=== PATIENT | male | born 1985 | race Caucasian/White ===

== ENCOUNTER 2017-04-27 09:30 | Inpatient (IN) | payer OTHER ==
[~2017-04-27] VITALS: Ht 172.7 cm; Wt 97.5 kg
[~2017-04-27 09:30] MED LIST: BUPROPION XL300 M1 PO; HYDROXYZINE HCL50 M1 PO; POLYTRIM EYE DR10 ML OPH; PREDNISONE10 M2 PO; TRAZODONE HCL100 M1 PO; VENLAFAXINE HCL75 M1 PO
--- NOTE | 2017-04-27 10:20 | ED PSYCHIATRIC COMPLAINT ---
History of Present Illness General Chief Complaint: Psychiatric Related Complaint Stated Complaint: +SI Source: patient Exam Limitations: no limitations Vital Signs & Intake/Output Vital Signs & Intake/Output Vital Signs Date Time Temp Pulse Resp B/P B/P Pulse O2 O2 Flow FiO2 Mean Ox Delivery Rate 04/27 1311 97.6 88 18 153/83 98 Room Air 04/27 1047 97.2 81 18 168/97 97 Room Air 04/27 0933 98.2 99 18 161/94 99 Room Air Allergies Coded Allergies: poison kevin extract (SWELLING, REDNESS, HIVES ALL OVER 10/17/15) poison oak extract (SWELLING, REDNESS, HIVES ALL OVER 10/17/15) poison sumac extract (SWELLING, REDNESS, HIVES ALL OVER 10/17/15) Reconcile Medications No Known Home Medications Triage Note: PT TO ED FOR +SI, REPORTING HE RECENTLY RELAPSED ON HEROIN AND HIS MOM HAS BEEN ILL "I JUST CAN'T DEAL WITH LIFE RIGHT NOW" TEARFUL IN TRIAGE. Triage Nurses Notes Reviewed? yes Onset: Abrupt Duration: day(s):, constant, continues in ED Timing: recent history HPI: 31-year-old male comes into the emergency room for further evaluation of suicidal ideation. Patient reports that he has been feeling increasingly depressed for the past 6 months. He has a prior history of suicidal and major depression. He's been off of his medication for depression for about a year. He admits to heroin use. Denies any alcohol use. He reports that his plan was to make some chemicals at home and inhale them. Denies owning any guns. He lives with his mother. Currently no relationships. (Hugo Diana) Past History Travel History Traveled to [place] past 21 day No Medical History Any Pertinent Medical History? see below for history Neurological: NONE EENT: NONE Cardiovascular: NONE Respiratory: NONE Gastrointestinal: NONE Hepatic: NONE Renal: NONE Musculoskeletal: NONE Psychiatric: opioid dependence, MAJOR DEPRESSION D/O Endocrine: NONE Blood Disorders: NONE Cancer(s): NONE Isolation History: Standard Surgical History Surgical History: non-contributory Psychosocial History What is your primary language Faroese Tobacco Use: Never used ETOH Use: denies use Illicit Drug Use: cocaine, heroin Family History Hx Contributory? No (Hugo Diana) Review of Systems Review of Systems Constitutional: Reports: no symptoms. EENTM: Reports: no symptoms. Respiratory: Reports: no symptoms. Cardiovascular: Reports: no symptoms. GI: Reports: no symptoms. Genitourinary: Reports: no symptoms. Musculoskeletal: Reports: no symptoms. Skin: Reports: no symptoms. Neurological/Psychological: Reports: see HPI. Hematologic/Endocrine: Reports: no symptoms. Immunologic/Allergic: Reports: no symptoms. All Other Systems: Reviewed and Negative (Hugo Diana) Physical Exam Physical Exam General Appearance: well developed/nourished, mild distress Head: atraumatic Eyes: Bilateral: normal appearance, EOMI. Ears, Nose, Throat: normal ENT inspection, hearing grossly normal Neck: normal inspection Respiratory: no respiratory distress Cardiovascular: regular rate/rhythm Extremities: normal range of motion Neurological/Psychiatric: awake, alert, flat Appearance/Memory/Insight: appropriate appearance Behavoir/Eye Contact/Speech: cooperative, decreased rate of speech Thoughts/Hallucinations: no apparent hallucination Skin: intact, normal color, warm/dry SAD PERSONS SAD PERSONS Response Value Male Sex? yes 1 Depression/Hopelessness? yes 2 Previous Attempts/Psych Care yes 1 Excessive Ethanol/Drug Use? yes 1 Rational Thinking Loss? yes 2 Single//? yes 1 Stated Future Intent? yes 2 Total 10 SAD PERSONS Done? yes (Hugo Diana) Progress Differential Diagnosis: dementia, drug intoxication, drug overdose, drug withdrawal, depression, anxiety, bipolar, schizoaffective, Plan of Care: Orders Procedure Date/time Status Regular Diet 04/27 L Complete Regular Diet 04/27 D Active Admit to inpatient psych 04/27 1304 Active Patient Data - inpatient psych 04/27 1227 Active Admit to inpatient psych 04/27 1227 Active EKG 04/27 1227 Active ED CRISIS PSYCH CONSULT 04/27 1137 Active Continuous Observation Monitor 04/27 0951 Active URINE DRUGS OF ABUSE 04/27 0951 Complete ETHANOL 04/27 0951 Complete COMPREHENSIVE METABOLIC PANEL 04/27 0951 Complete CBC WITHOUT DIFFERENTIAL 04/27 0951 Complete Vital Signs 04/27 UNK Active Nursing Misc 04/27 UNK Active Alternative Nursing Therapy 04/27 UNK Active Activity/Ambulation 04/27 UNK Active Current Medications Sig/Awais Start time Last Medication Dose Stop Time Status Admin Al Hydroxide/Mg 30 ML Q4-6 PRN PRN 04/27 1230 UNVr Hydroxide (Maalox Plus) Benztropine Mesylate 1 MG Q6P PRN 04/27 1230 UNVr (Cogentin 1 MG Tablet) Benztropine Mesylate 1 MG Q6P PRN 04/27 1230 UNVr (Cogentin) Buprenorphine/ 2 TAB Q4 HRS NEEDED PRN 04/27 1230 UNVr Naloxone (Suboxone) Haloperidol 5 MG Q6P PRN 04/27 1230 UNVr (Haldol) Haloperidol 5 MG Q6P PRN 04/27 1230 UNVr (Haldol) Hydroxyzine HCl 50 MG Q6-PRN PRN 04/27 1230 UNVr (Atarax) Ibuprofen 400 MG Q6P PRN 04/27 1230 UNVr (Motrin) Loperamide HCl 2 MG Q6P PRN 04/27 1230 UNVr (Imodium) Lorazepam 2 MG Q6P PRN 04/27 1230 UNVr (Ativan) Lorazepam 2 MG Q6P PRN 04/27 1230 UNVr (Ativan) Trazodone HCl 50 MG AT BEDTIME NEED.. 04/27 1230 UNVr (Desyrel) Laboratory Tests 04/27/17 1119: Urine Opiates Screen 3164.00 H, Methadone Screen 46, Barbiturate Screen < 60, Ur Phencyclidine Scrn 11.60, Amphetamines Screen < 100, U Benzodiazepines Scrn < 85, Urine Cocaine Screen > 1000 H, Urine Cannabis Screen < 5.00 04/27/17 1023: Anion Gap 13, Estimated GFR > 60, BUN/Creatinine Ratio 18.3, Glucose 110 H, Calcium 9.9, Total Bilirubin 0.5, AST 26, ALT 40, Alkaline Phosphatase 75, Total Protein 7.3, Albumin 4.5, Globulin 2.8, Albumin/Globulin Ratio 1.6, CBC w Diff NO MAN DIFF REQ, RBC 4.81, MCV 89.1, MCH 30.1, MCHC 33.7, RDW 13.9, MPV 7.6, Gran % 65.8, Lymphocytes % 29.7, Monocytes % 3.2, Eosinophils % 0.8, Basophils % 0.5, Absolute Granulocytes 3.3, Absolute Lymphocytes 1.5, Absolute Monocytes 0.2 , Absolute Eosinophils 0, Absolute Basophils 0, Serum Alcohol < 10.0 Initial ED EKG: normal sinus rhythm, rate (89), nonspecific ST T wave chg (Hugo Diana) Departure Departure Disposition: STILL A PATIENT Condition: Stable Clinical Impression Primary Impression: Major depression Referrals: Dwight VERNON,Brody Jean (PCP/Family) Departure Forms: Customer Survey General Discharge Information Prescriptions: Current Visit Scripts No Known Home Medications (Hugo Diana) Psych Admission Note Psychiatric Admission: I have seen and evaluated MATTY WHITE. I have also reviewed all the pertinent lab results and diagnostic results. MATTY WHITE will be admitted to our inpatient Psychiatric unit for treatment and care. PA/UTILITIES SERVICE INVESTIGATOR Co-Sign Statement Statement: ED Attending supervision documentation- [X] I saw and evaluated the patient. I have also reviewed all the pertinent lab results and diagnostic results. I agree with the findings and the plan of care as documented in the PA's/UTILITIES SERVICE INVESTIGATOR's documentation. [X] I have reviewed the ED Record and agree with the PA's/UTILITIES SERVICE INVESTIGATOR's documentation. [] Additions or exceptions (if any) to the PAs/UTILITIES SERVICE INVESTIGATOR's note and plan are summarized below: [PT REQUIRES ADMISSION TO [facility] FOR INPATIENT PSYCHIATRIC TREATMENT] (Damian VERNON,Vinicius Bond) (Damian VERNON,Vinicius Bond)
[2017-04-27 10:44] LABS: ABSOLUTE BASOPHIL COUNT 0 /CUMM (0.0-0.2); ABSOLUTE EOSINOPHIL COUNT 0 /CUMM (0.0-0.7); ABSOLUTE GRANULOCYTE CT 3.3 /CUMM (1.4-6.5); ABSOLUTE LYMPH COUNT 1.5 /CUMM (1.2-3.4); ABSOLUTE MONOCYTE COUNT 0.2 /CUMM (0.10-0.60); BASOPHIL % 0.5 % (0.0-2.0); EOSINOPHIL % 0.8 % (0-5); GRANULOCYTE % 65.8 % (42.2-75.2); HEMATOCRIT 42.8 % (42-52); MEAN CORPUSCULAR HGB 30.1 PG (27.0-31.0); MEAN CORPUSCULAR HGB CONC 33.7 G/DL (33.0-37.0); MEAN CORPUSCULAR VOLUME 89.1 FL (80.0-94.0); MEAN PLATELET VOLUME 7.6 FL (7.4-10.4); PLATELET COUNT 220 /CUMM (130-400); RBC DISTRIBUTION WIDTH 13.9 % (11.5-14.5); RED BLOOD CELL CT 4.81 /CUMM (4.70-6.10); WHITE BLOOD CELL COUNT 4.9 /CUMM (4.8-10.8)
--- NOTE | 2017-04-27 12:47 | ED PSYCH CRISIS CONSULTATION ---
Crisis Consult Basic Assessment Date of Consult: 04/27/17 Responsible Person/Accompanied By: Patient ALEXA mother Insurance Authorization: Insurance #1: Insurance name: JEN LOO Phone number: Policy number: [id number] Group number: Authorization number: ED Provider: Patient's ED Provider: Hugo Diana Primary Care Physician: Patient's PCP: Brody Quintanilla MD PCP's Current Psychiatrist: None Chief Complaint: Psychiatric Related Complaint Patient's Quote: "I have been feeling more and more overwhelmed" Present Illness: Patient is a 31 year old male brought in by his mother this morning due to increased suicidal thoughts. Upon arrival, patient was laying on his bed in hospital scrubs. He appeared tearful and sad, he also had a flat affect but was pleasant. Pt reported that he has become more and more overwhelmed. 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 She recently underwent brain surgery and is able to walk and do more daily living activities on her own. Pt reports depressive symptoms and thoughts to harm himself. Pt also reports that he has been using Heroin. He reports using 5-10 bags of Heroin a day. Pt also reports that a stressor is that his drug use has led to financial difficulties for him and his mother. He reports that in October/November 2016 he put a bag over his head and tied rubber bands around it in an attempt to kill himself. Since then, he has been researching other ways to kill himself, but he reports he does not want to go through with it. Pt reports he was inpatient at [facility] about a year and a half ago due to suicidal ideation. He was in treatment and on medication ( Effexor, Trazodone & Wellbutrin) for about 5 years, but stopped treatment and medication about 1.5 years ago due to the practice he was going to no longer taking his insurance. Pt. reports that medication was helpful for him in the past. Pt is seeking voluntary admission at this time. Crisis left voicemail for pt's mother asking for call back for collateral and to inform her of admission to [facility]PS. [place]-Suicide Severity Rating Scale was completed during assessment. Pt acknowledges suicidal thoughts but does not wish to be . He reported feeling hopeless, helpless, trapped and in a major depressive episode. Did report feeling like a burden to family members due to hx of substance abuse. Pt was able to identify reasons for living and did report responsibility to family members. Patient's Address: [place] [address] Other Who Do You Live With? Mother Family/Informants Interviewed: left mother voicemial. Allergies - Coded Allergies: poison kevin extract (SWELLING, REDNESS, HIVES ALL OVER 10/17/15) poison oak extract (SWELLING, REDNESS, HIVES ALL OVER 10/17/15) poison sumac extract (SWELLING, REDNESS, HIVES ALL OVER 10/17/15) Current Medications - No Known Home Medications Laboratory Results: Laboratory Tests 04/27/17 1119: Urine Opiates Screen 3164.00 H, Methadone Screen 46, Barbiturate Screen < 60, Ur Phencyclidine Scrn 11.60, Amphetamines Screen < 100, U Benzodiazepines Scrn < 85, Urine Cocaine Screen > 1000 H, Urine Cannabis Screen < 5.00 04/27/17 1023: Anion Gap 13, Estimated GFR > 60, BUN/Creatinine Ratio 18.3, Glucose 110 H, Calcium 9.9, Total Bilirubin 0.5, AST 26, ALT 40, Alkaline Phosphatase 75, Total Protein 7.3, Albumin 4.5, Globulin 2.8, Albumin/Globulin Ratio 1.6, CBC w Diff NO MAN DIFF REQ, RBC 4.81, MCV 89.1, MCH 30.1, MCHC 33.7, RDW 13.9, MPV 7.6, Gran % 65.8, Lymphocytes % 29.7, Monocytes % 3.2, Eosinophils % 0.8, Basophils % 0.5, Absolute Granulocytes 3.3, Absolute Lymphocytes 1.5, Absolute Monocytes 0.2 , Absolute Eosinophils 0, Absolute Basophils 0, Serum Alcohol < 10.0 Past History Past Medical History Neurological: NONE EENT: NONE Cardiovascular: NONE Respiratory: NONE Gastrointestinal: NONE Hepatic: NONE Renal: NONE Musculoskeletal: NONE Psychiatric: opioid dependence, MAJOR DEPRESSION D/O Endocrine: NONE Blood Disorders: NONE Cancer(s): NONE Past Surgical History Surgical History: non-contributory Psychosocial History Strengths/Capabilities: pt is seeking out help, open to suggestions, honest and likable. Physical Limitations (Interventions): pt reports financial difficulties Psychiatric Treatment History Psych Treatment Psychiatric Treatment Yes Inpatient Treatment Yes Outpatient Treatment Yes Location of Treatment inpatient - [facility], unknown outpatient agency in [place], [place] Reason for Treatment depression Dates of Treatment [facility] - inpatient July 2015. outpatient in [place] 2016 Response to Treatment pt reports doing well on medication Diagnosis by History: Major Depressive Disorder Substance Use/Abuse History Drug Use/Abuse 1 Substances Used/Abused Yes Substance Used/Abused Heroin First Use relapsed 6 months ago Last Used yesterday How much used/taken 5-10 bags How often daily For how long 6 months Drug Use/Abuse 2 Substances Used/Abused Yes Substance Used/Abused Cocaine First Use unclear Last Used yesterday How much used/taken unknown How often only when he doesn't have access to heroin For how long unclear Substance Abuse Treatment Substance Abuse Treatment Past Substance Abuse [place] No Current Mental Status Mental Status Orientation: Person, Place, Situation Affect: Flat, Hopeless, Sad Speech: WNL Neuro-vegetative: WNL Appearance Appearance- Dress/Hygiene: pt is dressed in hosptial scrubs. Hygeine was appropriate. Behaviors Thought Process: WNL Thought Content: WNL Memory: WNL Insight: Fair SI/HI Risk Assessment Past Suicidal Ideation/Attempts Yes Current Suicidal Ideation/Att Yes Past Homicidal Ideation/Att: No Current Homicidal Ideation/Attempts No Degree of Intent: Thoughts/No Intent Danger To: Self Risk Factors: history of suicide atmpts, SA/MH hospitalized, substance abuse, isolate/no social support, male Lethality Ratin PTSD Checklist PTSD Done? patient declined ED Management Sitter: Yes Restraints: No DSM5/PS Stressors/Medical Prob Diagnosis' (DSM 5, Stressors, Medical): F33.1- Major Depressive Disorder Moderate Recurrent Episone F11.20 - Opioid Use Disorder, Severe Current GAF: 23 Departure Disposition Psych Medical Clearance Date: 04/27/17 Medically Cleared at: 1215 Time Started: 1215 Time Ended: 1245 Psychiatrist Consulted: Dr. Sage Date Disposition Established: 04/27/17 Time Disposition Established: 1245 Plan for Disposition - Modality: Inpatient Psychiatry Facility: [facility] Rationale for Disposition: Pt reports SI. He was brought to the ED by his mother. He reports feeling more and more overwhelmed over the past 6 months. He also reports using heroin daily. Type of IP Admission: Voluntary Referrals Dwight VERNON,Brody Jean (PCP/Family)
--- NOTE | 2017-04-27 14:06 | IP CRISIS DIAG ASSESS PSYCH ---
See Addendum Diagnostic Assessment Basic Assessment Insurance Authorization: Insurance #1: Insurance name: JEN LOO Phone number: Policy number: [id number] Group number: Authorization number: Primary Care Physician: Patient's PCP: Brody Quintanilla MD PCP's Patient's Quote: "I have been feeling more and more overwhelmed" Present Illness: Patient is a 31 year old male brought in by his mother this morning due to increased suicidal thoughts. Upon arrival, patient was laying on his bed in hospital scrubs. He appeared tearful and sad, he also had a flat affect but was pleasant. Pt reported that he has become more and more overwhelmed. 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 She recently underwent brain surgery and is able to walk and do more daily living activities on her own. Pt reports depressive symptoms and thoughts to harm himself. Pt also reports that he has been using Heroin. He reports using 5-10 bags of Heroin a day. Pt also reports that a stressor is that his drug use has led to financial difficulties for him and his mother. He reports that in October/November 2016 he put a bag over his head and tied rubber bands around it in an attempt to kill himself. Since then, he has been researching other ways to kill himself, but he reports he does not want to go through with it. Pt reports he was inpatient at [facility] about a year and a half ago due to suicidal ideation. He was in treatment and on medication ( Effexor, Trazodone & Wellbutrin) for about 5 years, but stopped treatment and medication about 1.5 years ago due to the practice he was going to no longer taking his insurance. Pt. reports that medication was helpful for him in the past. Pt is seeking voluntary admission at this time. Crisis left voicemail for pt's mother asking for call back for collateral and to inform her of admission to CPS. [place]-Suicide Severity Rating Scale was completed during assessment. Pt acknowledges suicidal thoughts but does not wish to be . He reported feeling hopeless, helpless, trapped and in a major depressive episode. Did report feeling like a burden to family members due to hx of substance abuse. Pt was able to identify reasons for living and did report responsibility to family members. Patient's Address: [address] [place] [address] Other Who Do You Live With? Mother Feel Safe Where You Live? Yes Feel Safe in Your Relationship Yes Marital Status: single Do You Have Children? No Primary Language? Singaporean Language(s) Spoken At Home: Singaporean Family/Informants Interviewed: left mother voicemial. Allergies - Coded Allergies: poison kevin extract (SWELLING, REDNESS, HIVES ALL OVER 10/17/15) poison oak extract (SWELLING, REDNESS, HIVES ALL OVER 10/17/15) poison sumac extract (SWELLING, REDNESS, HIVES ALL OVER 10/17/15) Current Medications - No Known Home Medications Past History Past Surgical History Surgical History non-contributory Abuse/Trauma History Trauma History/Current Trauma: Denies Legal History Current Legal Status: none Have you ever been arrested? Yes Number of Arrests: [address] Dates: n.a Psychosocial History Strengths/Capabilities: pt is seeking out help, open to suggestions, honest and likable. Physical Limitations (Interventions): pt reports financial difficulties Psychiatric Treatment History Psych Treatment Psychiatric Treatment Yes Inpatient Treatment Yes Outpatient Treatment Yes Location of Treatment inpatient - [facility], [facility] outpatient agency in [place], [place] Reason for Treatment depression Dates of Treatment [facility] - inpatient July 2015. outpatient in [place] 2016 Response to Treatment pt reports doing well on medication Diagnosis by History: Major Depressive Disorder Risk Factors: history of suicide atmpts, SA/MH hospitalized, substance abuse, isolate/no social support, male Substance Use/Abuse History Drug Use/Abuse minimum 12mo Hx Substances Used/Abused Yes Substance Used/Abused Cocaine First Use unclear Last Used yesterday How much used/taken unknown How often only when he doesn't have access to heroin For how long unclear Substance Abuse Treatment Substance Abuse Treatment Past Substance Abuse [place] No Sexual History Sexually Active No Sexual Concerns: no concerns reported Education History Highest Level of Education: some college Preferred Learning Style: visual, auditory, experiential Current Mental Status Mental Status Orientation: Person, Place, Situation Affect: Flat, Hopeless, Sad Speech: WNL Neuro-vegetative: WNL Appearance Appearance- Dress/Hygiene: pt is dressed in hosptial scrubs. Hygeine was appropriate. Behaviors Thought Process: WNL Thought Content: WNL Memory: WNL Insight: Fair SI/HI Risk Assessment - Minimum 6mo History- Past Suicidal Ideation/Attempts Yes Current Suicidal Ideation/Att Yes Past Homicidal Ideation/Att: No Current Homicidal Ideation/Attempts No Degree of Intent: Thoughts/No Intent Danger To: Self Risk Factors: history of suicide atmpts, SA/MH hospitalized, substance abuse, isolate/no social support, male Lethality Ratin Needs/Init TX Plan/Goals: Monitor and improve mood Assess need for medication management Attend psycho social groups on the unit Discharge planning AUDIT-C Questionnaire: AUDIT-C Questionnaire: Response Value ETOH use in the past year Never 0 # drinks typical/day Doesn't Drink 0 6 or > drinks per occasion Never 0 Total 0 DSM5/PS Stressors/Medical Prob Diagnosis' (DSM 5, Stressors, Medical): F33.1- Major Depressive Disorder Moderate Recurrent Episone F11.20 - Opioid Use Disorder, Severe Current GAF: 23
--- NOTE | 2017-04-27 14:06 | SOCIAL WORKER SOCIAL HX PSYCH ---
Social History Basic Assessment Insurance Authorization: Insurance #1: Insurance name: JEN LOO Phone number: Policy number: [id number] Group number: Authorization number: Curr Source of Income/Entitlements: mother Primary Care Physician: Patient's PCP: Brody Quintanilla MD PCP's Present Problem: Patient is a 31 year old male brought in by his mother this morning due to increased suicidal thoughts. Upon arrival, patient was laying on his bed in hospital scrubs. He appeared tearful and sad, he also had a flat affect but was pleasant. Pt reported that he has become more and more overwhelmed. 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 She recently underwent brain surgery and is able to walk and do more daily living activities on her own. Pt reports depressive symptoms and thoughts to harm himself. Pt also reports that he has been using Heroin. He reports using 5-10 bags of Heroin a day. Pt also reports that a stressor is that his drug use has led to financial difficulties for him and his mother. He reports that in October/November 2016 he put a bag over his head and tied rubber bands around it in an attempt to kill himself. Since then, he has been researching other ways to kill himself, but he reports he does not want to go through with it. Pt reports he was inpatient at [facility] about a year and a half ago due to suicidal ideation. He was in treatment and on medication ( Effexor, Trazodone & Wellbutrin) for about 5 years, but stopped treatment and medication about 1.5 years ago due to the practice he was going to no longer taking his insurance. Pt. reports that medication was helpful for him in the past. Pt is seeking voluntary admission at this time. Crisis left voicemail for pt's mother asking for call back for collateral and to inform her of admission to CPS. [place]-Suicide Severity Rating Scale was completed during assessment. Pt acknowledges suicidal thoughts but does not wish to be . He reported feeling hopeless, helpless, trapped and in a major depressive episode. Did report feeling like a burden to family members due to hx of substance abuse. Pt was able to identify reasons for living and did report responsibility to family members. Primary Language? Tanzanian Language(s) Spoken At Home: Tanzanian Living Situation Rents or Owns Home? owns Feel Safe Where You Are Living Yes Feel Safe in Relationships? Yes Allergies - Coded Allergies: poison kevin extract (SWELLING, REDNESS, HIVES ALL OVER 10/17/15) poison oak extract (SWELLING, REDNESS, HIVES ALL OVER 10/17/15) poison sumac extract (SWELLING, REDNESS, HIVES ALL OVER 10/17/15) Current Medications - No Known Home Medications Past History Past Medical History Neurological: NONE EENT: NONE Cardiovascular: NONE Respiratory: NONE Gastrointestinal: NONE Hepatic: NONE Renal: NONE Musculoskeletal: NONE Psychiatric: opioid dependence, MAJOR DEPRESSION D/O Endocrine: NONE Blood Disorders: NONE Cancer(s): NONE Past Surgical History Surgical History: non-contributory /Family History Place/Country of Origin: [place], [place] Childhood Family Constellation: only child Primary Childhood Caretakers: father, mother Family Life During Childhood: "good" DCF Involvement? No Mother's Age (Current/): 69 Relationship w/Mother: "good" Father's Age (Current/): 59 () Relationship w/Father: "good" Any Sibling(s)? No Relationship w/Friends: "good" pt reports he hangs out with his friends at the bar sometimes, and also goes fishing with them Family Psych/Sub Abuse/Add Hx: father hx of PTSD Abuse/Trauma History Trauma History/Current Trauma: Denies History of Trauma/Abuse Treatment? No Abuse/Trauma Treatment: pt denies Legal History Current Legal Status: none Pending Court Dates: November 2017 Have you ever been arrested Yes Number of Arrests: 1 Hx of Juvenile Legal Charges? No Hx of Adult Legal Charges? Yes If Yes: misdemeanor List/Date Most Recent Lgl Chgs: posession - Oct 2016 Civil Proceedings: n/a Domestic Relations Court: n/a Child Protective Serv Involvmnt n/a Psychosocial History Primary Support System: mother Strengths/Capabilities: pt is seeking out help, open to suggestions, honest and likable. Weaknesses: drug use, financial concerns Physical Limitations (Interventions): pt reports financial difficulties Last Physical: 3 years ago History of Seizures? No Last Blackout: n/a ADL Limitations: none Butler/Social/Peer Relations Pt reports he hangs out with his friends at the bar or goes fishing with them Meaningful Activities: fishing Childhood Baptist: Mandaeism Current Episcopal Affiliation: Mandaeism Is Spirituality Important to You? "no" Patient's Ethnicity: Barbadian Cultural/Ethnic Issues: n/a Are There Developmental Issues? No Milestones Achieved: fine motor, gross motor Psychiatric Treatment History Psych Treatment Inpatient Treatment Yes Outpatient Treatment Yes Location of Treatment inpatient - [facility], formerly [facility] outpatient agency in [place], [place] Reason for Treatment depression Dates of Treatment [facility] - inpatient July 2015. outpatient in [place] 2016 Response to Treatment pt reports doing well on medication Current Varnish Blender: none Treatment of Prior Episodes: [facility] - inpatient outpatient in [place], formerly [facility] facility Diagnosis: Major Depressive Disorder Psychodynamic Issues: mothers health issues Risk Factors: history of suicide atmpts, SA/MH hospitalized, substance abuse, isolate/no social support, male Substance Use/Abuse History Drug Use/Abuse Substance Used/Abused Cocaine First Use unclear Last Used yesterday How much used/taken unknown How often only when he doesn't have access to heroin For how long unclear Have Had Periods of Sobriety? Yes Explain: reports was sober for 3-4 months before last relapse Relapse History? Yes Explain: reports was sober for 3-4 months before last relapse. Have You Ever Attended AA? Yes (in inpatient) Do You Attend AA Currently? No Do You Have a Sponsor? No Other Community Resources Used: n/a Symptoms of Use: n/a Substance Abuse Treatment Substance Abuse Treatment Inpatient Treatment No Outpatient Treatment Yes Location of Treatment inpatient - [facility], outpatient in [place], [place] Reason for Treatment depression Dates of Treatment inpatient about a 1.5 years ago. Outpatient 1 year ago Response to Treatment responded well to meds Comments: n/a Sexual History Sexually Active No Sexual Orientation Heterosexual Sexual Concerns: none Education History Highest Level of Education: some college Highest Grade Completed: associates Vocational Year Completed: n/a Number of College Years: 2 College Degree/Major: associates degree Other Degree(s): n/a Preferred Learning Style: visual, auditory, experiential HX of Learning Difficulties: None reported Barriers to Learning: None reported Special Communication Needs: None reported Employment History Employment Unemployed 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 of Jobs in Last 5 Years: 1 Attendance: Absenteeism Performance: Below Average History Have You Been in The ? No If Yes, Explain: n/a Current Mental Status Mental Status Orientation: Person, Place, Situation Affect: Flat, Hopeless, Sad Speech: WNL Neuro-vegetative: WNL Appearance Appearance- Dress/Hygiene: pt is dressed in hosptial scrubs. Hygeine was appropriate. Behaviors Thought Process: WNL Thought Content: WNL Memory: WNL Insight: Fair SI/HI Risk Assessment Past Suicidal Ideation/Attempts Yes Current Suicidal Ideation/Att Yes Past Homicidal Ideation/Att: No Current Homicidal Ideation/Attempts No Degree of Intent: Thoughts/No Intent Danger To: Self Lethality Ratin - Conclusion and Recommendations for treatment - and discharge planning
[2017-04-27 16:39] VITALS: BP 136/79
[2017-04-27 19:58] VITALS: BP 144/77
[2017-04-28 07:43] VITALS: BP 137/75
[2017-04-28 11:55] VITALS: BP 134/63
--- NOTE | 2017-04-28 15:15 | CPS PROVIDER INIT ASMT PSYCH ---
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 Chief Complaint: "I'm overwhelmed taking care of my mother and the house" Reaction to Hospitalization: Accepting, appreciative History of Present Illness Onset of Illness: Depression and on off heroin use x 2 years. Circumstances Leading to Admission: -Living with mother who has recently undergone neurosurgery for NPH and currently underoing rehab. 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 Denies any history of IVDU -No current outpatient treatment or meds. Did previously find a combination of trazodone, wellbutrin, and effexor to be helpful Problem(s) Justifying Need for Admission: -depression with suicidal ideation and substance use Past Psychiatric History Past Diagnosis(es)- if any: Unspecified depressive disorder Opiate use disorder, moderate Past Precipitating Factors- if any: Taking care of ill family member - Include inpatient and outpatient treatment Treatment History: 1 previous inpatient treatment at [facility] ~1.5 years ago for SI/dep/opiate use. Followed up with [facility] though hasn't seen them for about 1 year. History of Suicide Attempts or Gestures Denies previous attempts to kill self however reports rehearsing suicide by placing bag over head in past. Substance Abuse History: Heroin use (insufflation) off and on x 2 years. Currently using daily. Allergies: Coded Allergies: poison kevin extract (SWELLING, REDNESS, HIVES ALL OVER 10/17/15) poison oak extract (SWELLING, REDNESS, HIVES ALL OVER 10/17/15) poison sumac extract (SWELLING, REDNESS, HIVES ALL OVER 10/17/15) Home Med List: None - Include any medical condition(s) that may - impact the patient's recovery/remission Past Medical History: Non-contributory Past History Medical History Neurological: NONE EENT: NONE Cardiovascular: NONE Respiratory: NONE Gastrointestinal: NONE Hepatic: NONE Renal: NONE Musculoskeletal: NONE Psychiatric: insomnia, opioid dependence, substance abuse, MAJOR DEPRESSION D/O Endocrine: NONE Blood Disorders: NONE Cancer(s): NONE E BUSINESS MANAGER/Reproductive: NONE History of MRSA: No History of VRE: No History of CDIFF: No Isolation History: Standard Influenza Vaccine: [id number] Surgical History Surgical History: non-contributory Psychiatric Family/Social Hx Family History Psychiatric Illness: Mother: depression Father: PTSD Grandfather: BPAD Substance Use: Denies Suicides: None known Social History Living Situation: Lives with mom in [place] Significant Relationships (family/friends): Mom Education: Some college 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 Legal: Denies Healthly Behaviors Screening Tobacco Screening Tobacco Use from ED Docu: Never used - If tobacco counseling indicated - the following topics are required. - #1 Recognizing dangerous situations. - #2 Coping Skills. - #3 Basic information about quitting. Status of Tobacco Cessation Counseling: Not Applicable Cessation Med Status Not Applicable Alcohol Screening - ETOH screen POS if BAL >=80 or Audit-C>= M4/F3 Audit-C Score from Diag Assess: 0 Blood Alcohol Level: Laboratory Tests 04/27 1023 Toxicology Serum Alcohol (<10 MG/DL) < 10.0 Alcohol Use Screening Results: Neg per Audit C &/or BAL - If ETOH counseling indicated - the following topics are required. - #1 Express concern about the patient's - drinking at unhealthy levels, include informing - of national norms for moderate drinking: - men <= 14 drinks/week, max 4 drinks/occasion - women <= 7 drinks/week, max 3 drinks/occasion - #2 Providing feedback, including linking alcohol to - negative physical effects (liver injury, hypertension) - negative emotional effects (relationship problems and - depression) - negative occupational consequences (reduced work - performance) - #3 Advising the patient to abstain from alcohol or - to drink below national norms for moderate drinking - (as listed above). Status of ETOH Use Counseling: N/A B/C NO ETOH Use Metabolic Screening - Screen if on a Neuroleptic Medication - Metabolic screening should include: - Blood Pressure, BMI, Glucose or Hgb A1c, & a - Lipid profile from within the past 365 days. Metabolic Screening ([X]) Not Applicable, patient not on a neuroleptic. OR () Patient on a neuroleptic(s) . Enter below results for Hemoglobin A1C, and lipid panel if obtained during the last 365 days. BMI: 32.600 Blood Pressure: 134/63 Laboratory Results From [facility] (If applicable): Exam and Plan Mental Status Examination Ambulation Status: Stable Appearance: Well groomed Attitude towards examiner: Cooperative and pleasant Psychomotor activity: Slowed Behavior: Appropriate Quality of speech: WNL Affect: Constricted, non-labile, congruent Mood: "depressed" Suicidal Ideation: Denies currently though positive on admission Homicidal Ideation: Denies Hallucinations: Denies Paranoid/Delusional Material: None evidenced Difficulties with thought organization: None evidenced Insight: Good Judgment: Good Orientation: To person, place, time Cognition: Intact Memory Function: Intact recent and remote Estimate of intellectual functioning: Average Assets/Strengths Patient Identified Assets/Strengths: Good caregiver to his mother Impression/Plan Impression and Plan: 31 y/o domiciled unemployed man with history of depression co-occurring with heroin use presenting with worsening of mood, development of SI, and escalating heroin (insufflated) use over past weeks to months in context of stress of taking care of mother with physical illness. - Include all active medical diagnosis that require tx DSM 5 Diagnosis(es): Depressive disorder, unspecified Heroin use disorder, severe - Initial Tx Plan for Active Psych & Medical Conditions Treatment Plan: -Admit CPS, 15 min checks -Collateral from family -f/u admit labs -Suboxone 4 mg Q4H PRN opiate withdrawal (max 12 mg/24H) then taper based on needs. R/B/SEs discussed -Will restart wellbutrin as patient reports good response to this med and reports sexual SEs with effexor in past (the other antidep that was helpful for him). R/B/SEs discussed. Start XL 150 mg daily. -trazodone for sleep as needed -Encourage participation in milieu and group treatment -Would be good candidate for suboxone maintenance upon d/c and patient seems amenable to this option -Rest of plan per primary team - Factors that would help patient function - in a less restrictive setting. Factors: -improved mood, absence of SI, identification of appropriate aftercare
[2017-04-28 15:56] VITALS: BP 135/70
--- NOTE | 2017-04-28 17:12 | History & Physical ---
General Information and HPI MD Statement: I have seen and personally examined MATTY WHITE and documented this H&P. The patient is a 31 year old M who presented with a patient stated chief complaint of [depression and suicidal ideation]. Source of Information: patient Exam Limitations: no limitations History of Present Illness: 31 yr old male with pmh of depression, drug abuse , suicidal ideation was admitted to [facility] with c/c of depressin and suicidal ideation. 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 Pt had had previous attempts at suicide. Last one being in october last year when he tried to put it by putting a bag over his head . Pt denies any other medical issues like htn , hld or dm. pt uses few bags of herion every day and has been using it off and on for the last 2 years. pt also sometimes snorts cocaine. denies smoking cigs and drinking alcohol . Allergies/Medications Allergies: Coded Allergies: poison kevin extract (SWELLING, REDNESS, HIVES ALL OVER 10/17/15) poison oak extract (SWELLING, REDNESS, HIVES ALL OVER 10/17/15) poison sumac extract (SWELLING, REDNESS, HIVES ALL OVER 10/17/15) Home Med list No Known Home Medications Past History Travel History Traveled to [place] past 21 day No Medical History Neurological: NONE EENT: NONE Cardiovascular: NONE Respiratory: NONE Gastrointestinal: NONE Hepatic: NONE Renal: NONE Musculoskeletal: NONE Psychiatric: insomnia, opioid dependence, substance abuse, MAJOR DEPRESSION D/O Endocrine: NONE Blood Disorders: NONE Cancer(s): NONE WELDER/Reproductive: NONE History of MRSA: No History of VRE: No History of CDIFF: No Isolation History: Standard Influenza Vaccine: [id number] Surgical History Surgical History: non-contributory Past Family/Social History Family History Relations & Conditions if any MOTHER Psychosocial History Where do you live? Home ETOH Use: denies use Illicit Drug Use: cocaine, heroin Employment History Employment Unemployed Profession/Employer [employer] - 2 years ago Review of Systems Review of Systems Constitutional: Denies: chills, fever. EENTM: Denies: double vision. Cardiovascular: Denies: chest pain, palpitations. Respiratory: Reports: cough. Denies: short of breath. GI: Denies: abdominal pain, constipation. Musculoskeletal: Denies: joint pain. Neurological/Psychological: Reports: depressed, other (suicidal ideation). Exam & Diagnostic Data Last 24 Hrs of Vital Signs/I&O Vital Signs Date Time Temp Pulse Resp B/P B/P Pulse O2 O2 Flow FiO2 Mean Ox Delivery Rate 04/28 1556 92 135/70 04/28 1155 94 134/63 04/28 0743 97.8 92 137/75 04/27 1958 98.6 96 144/77 Intake & Output 04/28 1600 04/28 0800 04/28 0000 Intake Total Output Total Balance Patient 97.522 kg Weight Physical Exam General Appearance Alert, Oriented X3, Cooperative, No Acute Distress Skin No Rashes HEENT Atraumatic, EOMI Neck Supple Cardiovascular Regular Rate, Normal S1, Normal S2 Lungs Clear to Auscultation, Normal Air Movement Abdomen Soft, No Tenderness Neurological Exam Findings: Normal Gait, Normal Speech, Cranial Nerves 3-12 NL Cranial Nerves II through XII: intact Extremities No Clubbing Assessment/Plan Assessment: Suicidal ideation / Depression - management as per psychiatry. Herion abuse/ Opiod use- pt started on suboxone. cont to monitor closely for any signs of withdrawl. d/w pt the care plan. As Ranked By This Provider Problem List: 1. Major depression Miscellaneous Miscellaneous Documentation Attending Case Discussed With: Chu VERNON PHD,Oscar Miranda Primary Care Physician: Dwight VERNON,Brody Jean Patient sees these Specialists none Level of Patient Care: AVELINO Strong Resident Review Statement Resident Statement: not seen by resident Attending MD Review Statement Attending Statement Attending MD Statement: examined this patient, reviewed EMR data (avail), discussed with nursing
[2017-04-28 19:54] VITALS: BP 134/74
[2017-04-29 07:52] VITALS: BP 125/78
[2017-04-29 12:04] VITALS: BP 140/74
--- NOTE | 2017-04-29 15:38 | CP SOUTH PROGRESS NOTE PSYCH ---
Psych (Inpt) Progress Note Progress Note Include the following elements, when applicable: Involvement in the active treatment of the patient with behavioral observations of the patient and the patient's response to the treatment. Review of the ongoing treatment process in the context of the treatment plan. Indication of how multi-disciplinary staff members are carrying out the treatment plan. Plans for future interventions and recommendations for revision of the treatment plan. Liaison with other physicians/providers. Progress Note: Dr. Sage's notes reviewed. Case and treatment plan discussed in team meeting. Staff reports that the patient has Suboxone available prn. Feels guilty for drug use. Seems depressed. Urine drug screen from 04/27/17 was positive for cocaine and opiates. Patient seen at 1:32 PM. The patient is a 31-year-old single white male who was admitted on 04/27/17 with suicidal ideation. He reports he just was not feeling well for about 6 months and it kept getting worse. Reports he relapsed with drugs in October 2016. Patient has been stressed in the context of not working and taking physical care of his mother for about 9 months. Reports he started looking for a job again. Reports suicidal ideation began in October 2016 and he tried putting a bag over his head. Reports drug use decreased the suicidal ideation. Past psychiatric history: Patient attended [facility] 1.5 years ago. Patient was hospitalized at [facility] 1.5-2 years ago. Substance abuse history: Has been smoking heroin at 10 bags a day. Rare cocaine use. No tobacco, alcohol or cannabis. Past history of Percocets and Vicodin. Medications prior to admission: None. Past medical history: None. Family psychiatric and substance use history: Mother with history of depression and father with history of PTSD and depression. Maternal grandfather with bipolar disorder. Father with history of alcohol, cannabis and heroin. Some paternal cousins with histories of alcohol. No suicides in the family. Social history: Patient lives with mother and mother supports the patient financially. Father 11-12 years ago. He had PTSD from [place]. He from idiopathic pulmonary fibrosis. The patient is an only child. He is not working and is not in school. He earned an associates degree and left [employer] because of financial issues. Mental status examination: The patient is ambulatory slightly overweight white male dressed in a blue scrub top and jeans. He has a light gayle. He is calm, polite and cooperative. There is no psychomotor agitation or retardation. Speech is normal in volume, rate and tone. Affect is calm and depressed. Reports mood is all right. Reports he feels a little emotional. Rates sad mood probably 6/10 and anxiety probably about a 6/10. Denies feeling hopeless. Feels helpless and worthless. Feels guilty for having taken money from his mother. Denies active suicidal ideation but he has fleeting passive suicidal ideation. Denies suicide plan and intent. Gives a safety promise fore here. Denies homicidal ideation. Denies auditory and visual hallucinations. Denies paranoid ideation and magical grewal. Insight and judgment are currently fair. There is no apparent thought disorder or delusions. Patient is oriented 3. Cognition is grossly intact. Estimate of intellectual functioning is average. Reports sleep was bad for months but he slept well last night. Appetite is good. Energy is a little low. Reports he has 3 clean friends, Peter, Newton and [place]. IMPRESSION: Major depression, recurrent, severe Opioid use disorder. Cocaine use disorder. Patient will be monitored on the unit for safety and mood disorder. Because he does not have an outpatient Suboxone prescriber lined up, I discontinued Suboxone and ordered clonidine standing and prn and prn's of baclofen and Bentyl. Dr. Sage ordered Wellbutrin XL 150 mg daily and trazodone 100 mg nightly. Additional information needed from collaterals, including mother. Anticipate once clinically stable, that the patient will be discharged to home and mother and be referred to [facility].
[2017-04-29 15:53] VITALS: BP 136/73
--- NOTE | 2017-04-29 16:45 | SOCIAL WORKER PROG NOTE PSYCH ---
Social Work Progress Note Progress Note 2pm This abstract writer met with patient. He reported that he had been feeling depressed and therefore came to the hospital. He stated that he had been smoking 10 bags of Heroin daily, with last use on , 04/25/17. Patient stated that he had been in treatment at [facility] in [place] about 1 year ago, however, did not continue after the first group due to "I didn't think I needed it." Patient acknowledged that he did need treatment and is interested in treatment now. He is not interested in rehab/inpatient or Methadone. He stated that he would be interested in learning more about Suboxone. Patient stated that he would like a referral to [facility]. Patient stated that he is not experiencing any withdrawal symptoms today. Patient stated that he lives with his mother and would be agreeable to a family meeting with her. He denied SI/HI/AH/HV.
[2017-04-29 19:56] VITALS: BP 125/65
[2017-04-30 07:44] VITALS: BP 106/59
[2017-04-30 12:04] VITALS: BP 116/54
--- NOTE | 2017-04-30 13:47 | SOCIAL WORKER PROG NOTE PSYCH ---
Social Work Progress Note Progress Note MATTY WHITE [id number] 1985 MATTY WHITE [id number] Pended Authorization # Client Authorization # Type of Request [id number] CONCURRENT Date of Admission/ Start of Services Requested From Submission Date 04/27/2017 04/30/2017 04/30/2017
--- NOTE | 2017-04-30 14:15 | CP SOUTH PROGRESS NOTE PSYCH ---
Psych (Inpt) Progress Note Progress Note Include the following elements, when applicable: Involvement in the active treatment of the patient with behavioral observations of the patient and the patient's response to the treatment. Review of the ongoing treatment process in the context of the treatment plan. Indication of how multi-disciplinary staff members are carrying out the treatment plan. Plans for future interventions and recommendations for revision of the treatment plan. Liaison with other physicians/providers. Progress Note: Case and treatment discussed in team meeting. Staff reports that the patient is cooperative and compliant. Visible in the milieu. Denying withdrawal symptoms. Wants to attend [facility] dual IOP. Patient seen at 10:28 AM. Was in group prior to meeting with me in office. Feels "okay, better, I guess my mood, more relaxed." Denies withdrawal symptoms. He is not sure he wants his mother to come in for a meeting. Affect is calm and blunted, slightly brighter. Rates sad mood and anxiety both 5/10. Denies feeling hopeless or helpless. Does feel worthless and guilty. Denies active and passive suicidal ideation. Denies homicidal ideation. Denies auditory and visual hallucinations and paranoid ideation. Tolerating medications well, without complaint. Reports sleep was not that good with middle of the night awakening. Appetite is good. Energy is a little low. Patient agrees to change from Wellbutrin XL 150 mg daily to Wellbutrin SR 150 mg daily. We will now start to taper down standing clonidine. IMPRESSION: Slow progress. Continue present treatment plan. Discharge is anticipated for to [facility] and to home and mother. Patient wants to go to a Suboxone program.
[2017-04-30 14:54] VITALS: BP 135/59
--- NOTE | 2017-04-30 15:46 | SOCIAL WORKER PROG NOTE PSYCH ---
Social Work Progress Note Progress Note Patient signed an ISRA for his mother and was agreeable to a family meeting. This ad copy writer spoke with patient's mother by phone and a family meeting was scheduled for 05/01/17 at 1:30pm 3:17pm This ad copy writer met with patient and informed him of the scheduled family meeting. He expressed anxiety about informing his mother of his substance use as well as the guilt he feels related to his behaviors. This ad copy writer provided support as patient identified ways in which he could address his use, recovery and treatment in the meeting tomorrow. Patient stated that he would like to ad copy writer a letter to his mother and read it during the meeting. Patient also expressed interest in attending a 12 step meeting on [facility] and informed nursing of this. Patient denied any safety concerns.
[2017-04-30 20:21] VITALS: BP 118/58
[2017-05-01 07:55] VITALS: BP 110/67
[2017-05-01 11:58] VITALS: BP 114/59
--- NOTE | 2017-05-01 12:00 | SOCIAL WORKER PROG NOTE PSYCH ---
Social Work Progress Note Progress Note Transfer summary faxed to [facility] 11:52am, in chart.
[2017-05-01 15:48] VITALS: BP 118/63
--- NOTE | 2017-05-01 16:22 | CP SOUTH PROGRESS NOTE PSYCH ---
Psych (Inpt) Progress Note Progress Note Include the following elements, when applicable: Involvement in the active treatment of the patient with behavioral observations of the patient and the patient's response to the treatment. Review of the ongoing treatment process in the context of the treatment plan. Indication of how multi-disciplinary staff members are carrying out the treatment plan. Plans for future interventions and recommendations for revision of the treatment plan. Liaison with other physicians/providers. Progress Note: Case and treatment plan discussed in team meeting. Staff reports that the patient is denying suicidal ideation. Appearing depressed. COWS scores are negative. Family meeting was scheduled with mother for 1:30 PM. Patient seen at 1:05 PM. He is dressed in blue paper scrubs. He was talking with a peer prior to meeting with me in office. States "I'm okay." Reports he is just really anxious about meeting with his mother. She apparently did not know about his heroin use. Patient was informed that clonidine dose will continue to be tapered down. Reports he feels like crying all the time. He would like to go back on Zoloft. Major risks and benefits of Zoloft were discussed with the patient, and he agrees this medication. He wants to start dose at 50 mg daily. He was advised to avoid drugs and alcohol while on this medication. Affect is almost tearful. Rates sad mood 6/10 and anxiety 7/10. Feels hopeless, worthless and guilty. Denies feeling helpless. Reports suicidal ideation. Gives a safety promise for here. Denies homicidal ideation. Denies auditory and visual hallucinations and paranoid ideation. Reports he had stencil typist awakening at 4:30 and has been up since then. Reports he was not hungry, so he did not eat breakfast but he did eat lunch. Reports energy is not normal, a little low. Tolerating medications well, without complaint. I attended family meeting with patient, mother and Laure Nicholson LCSW around 1: 30 PM. Mother was surprised to learn that the patient was using heroin. I discussed with patient and mother that we would like to prescribe a Narcan kit that she could use on the patient in case of opiate overdose emergency. Patient 's and mother's questions were addressed. IMPRESSION: Slow progress. Continue present treatment plan. Monitor response to addition of Zoloft 50 mg daily. There is a possibility of discharge tomorrow if the patient is feeling safe and no longer suicidal. Patient will be referred to [facility]'s IOP.
--- NOTE | 2017-05-01 17:42 | SOCIAL WORKER PROG NOTE PSYCH ---
Social Work Progress Note Progress Note 1:30pm Dr. Atkinson, this automobile service writer and patient met with his mother for a family meeting. Patient read a letter that he had written to his mother, disclosing his Heroin use. Patient shared that he had been using for about the past 6 months, which his mother stated that she was not aware of. Strategies were discussed to support recovery, such as the patient's mother changing bank account numbers. Dr. Atkinson discussed medications as well as Narcan. Patient and his mother were agreeable to the Narcan kit upon discharge. Discharge plans were reviewed, including an intake at [facility] scheduled for tomorrow at 1:15pm (which can be changed if the patient does not discharge tomorrow) as well as AA meetings and Al-Anon meetings. Patient shared that he attended the AA meeting last night and was given contact information. He plans to obtain a sponsor once he attends meetings after discharge.
[2017-05-01 20:05] VITALS: BP 127/57
[2017-05-02 08:10] VITALS: BP 107/64
[2017-05-02 12:08] VITALS: BP 131/67
[2017-05-02] MEDS ORDERED: SERTRALINE HCL50 MG PO (12:54)
[2017-05-02] MEDS ORDERED: BUPROPION HCL150 M4 PO (12:54)
[2017-05-02] MEDS ORDERED: TRAZODONE HCL100 M1 PO (12:54)
[2017-05-02] MEDS ORDERED: NARCAN NAS (12:57)
--- NOTE | 2017-05-02 13:03 | Patient Discharge Instructions ---
Psych Discharge Inst General Discharge Information Reason for Admission: Depression, suicidal ideation, opiate abuse. Psy Discharge Primary Diag+ Unspecified depression Psy Discharge Secondary Diag+ Opioid use disorder Cocaine use disorder Summary Tests/Major Procedures Lab ALT 40 U/L 04/27/17 1023 AST 26 U/L 04/27/17 1023 BUN 11 mg/dL 04/27/17 1023 Calcium 9.9 mg/dL 04/27/17 1023 Carbon Dioxide 29 mmol/L 04/27/17 1023 Chloride 103 mmol/L 04/27/17 1023 Creatinine 0.6 mg/dL L 04/27/17 1023 Estimated GFR > 60 ml/min 04/27/17 1023 Glucose 110 mg/dL H 04/27/17 1023 Potassium 4.9 mmol/L 04/27/17 1023 Sodium 145 mmol/L 04/27/17 1023 Hct 42.8 % 04/27/17 1023 Hgb 14.4 G/DL 04/27/17 1023 Plt Count 220 /CUMM 04/27/17 1023 WBC 4.9 /CUMM 04/27/17 1023 Urine Cocaine Screen > 1000 NG/ML H 04/27/17 1119 Urine Opiates Screen 3164.00 NG/ML H 04/27/17 1119 EKG from 04/27/17 showed sinus rhythm at 89, borderline T wave abnormalities, borderline EKG, QT 364, QTc 443. Studies Pending at DC: None. Patient Instructions Contact Information Your Psychiatrist on [facility] was Joni Atkinson MD * If you are experiencing an emergency related to this hospitalization, please call [phone] to contact the treating psychiatrist or the psychiatrist-on- call. * To Request a copy of your medical records, please contact the Medical Records Department at [phone]. * To request results of studies pending at the time of discharge, please call [phone]. * Continue your Medications until directed to stop by your Healthcare provider. General Medication Information Please continue to take your new medications and your continued home medications , unless otherwise indicated on your discharge medication list, or unless directed by your MD or ESTHETICIAN/OWNER to stop them. Special Instructions Diet Regular Activity Normal Other Inst/Recommendations See PCP about EKG, labs listed above. Stay away from drugs and alcohol! - Tobacco Use Treatment Offered Post DC Medications Offered: Not Applicable Post DC Tobacco Treatment Plan: Not Applicable - EtOH/Drug Use D/O Treatment Offered Post DC Medications Offered: Med Not Indicated for D/O Post DC EtOH/SubAbuse [place] Plan: [facility]Dual IOP Program Appt Date: 05/02/17 Program Appt Time: 1315 Metabolic Screening ([x]) Not Applicable, patient not on a neuroleptic. OR () Patient on a neuroleptic(s) . Enter below results for Hemoglobin A1C, and lipid panel if obtained during the last 365 days. BMI: 32.600 Blood Pressure: 131/67 Laboratory Results From [facility] EHR (If applicable): Advance Directives Does the Patient have Medical Advance Directives No/Refused further info Does Pt have Psychiatric Advance Directives? No/Refused further info Does Patient have a Designated Surrogate Decision Maker: No Information About Psychiatric Advance Directives Provided? Refused Discharge Plan Post Hospital Treatment Plan: Returning to home and mother.
--- NOTE | 2017-05-02 14:53 | CP SOUTH PROGRESS NOTE PSYCH ---
Psych (Inpt) Progress Note Progress Note Include the following elements, when applicable: Involvement in the active treatment of the patient with behavioral observations of the patient and the patient's response to the treatment. Review of the ongoing treatment process in the context of the treatment plan. Indication of how multi-disciplinary staff members are carrying out the treatment plan. Plans for future interventions and recommendations for revision of the treatment plan. Liaison with other physicians/providers. Progress Note: Case and treatment plan discussed in team meeting. Staff reports that the patient is denying suicidal ideation. Mood seems good. He will be going home to mother. Has IOP intake at 1:15 PM. Patient seen 11:49 AM. He was in group prior to meeting with me in office. Feels okay. Denies withdrawal symptoms. Anxious about discharge, that he will relapse with heroin. He is not concerned about safety vis a vis about suicide. Affect is blunted to depressed. Rates sad mood 6/10. Rates anxiety 7/10. Denies feeling hopeless. Does feel helpless, worthless and guilty. Denies active suicidal ideation. Has some passive suicidal ideation. Denies suicide intent and denies suicide plan. Denies homicidal ideation. Denies auditory and visual hallucinations and paranoid ideation. Reports he slept okay but for commotion at the end of the hawley. Appetite is okay. Energy is a little low. Tolerating medications well, without complaint. IMPRESSION: Condition improved. Okay for discharge today to IOP intake then to home and mother. I do not believe that the patient poses imminent risk for suicide.
--- NOTE | 2017-05-02 14:58 | DISCHARGE SUMMARY REPORT-PSYCH ---
Visit Information Visit Dates/Diagnosis' Admission Date: 04/27/17 Discharge Date: 05/02/17 Reason for Admission: Depression, suicidal ideation, opiate abuse. Psy Discharge Primary Diag: Unspecified depression Psy Discharge Secondary Diag: Opioid use disorder Cocaine use disorder Hospital Course Significant Lab Findings: Lab ALT 40 U/L 04/27/17 1023 AST 26 U/L 04/27/17 1023 BUN 11 mg/dL 04/27/17 1023 Calcium 9.9 mg/dL 04/27/17 1023 Carbon Dioxide 29 mmol/L 04/27/17 1023 Chloride 103 mmol/L 04/27/17 1023 Creatinine 0.6 mg/dL L 04/27/17 1023 Estimated GFR > 60 ml/min 04/27/17 1023 Glucose 110 mg/dL H 04/27/17 1023 Potassium 4.9 mmol/L 04/27/17 1023 Sodium 145 mmol/L 04/27/17 1023 Hct 42.8 % 04/27/17 1023 Hgb 14.4 G/DL 04/27/17 1023 Plt Count 220 /CUMM 04/27/17 1023 WBC 4.9 /CUMM 04/27/17 1023 Urine Cocaine Screen > 1000 NG/ML H 04/27/17 1119 Urine Opiates Screen 3164.00 NG/ML H 04/27/17 1119 EKG from 04/27/17 showed sinus rhythm at 89, borderline T wave abnormalities, borderline EKG, QT 364, QTc 443. Course Complications: None. Consultations: The patient was seen for admission H&P by Dr. Luther, who noted: "Assessment: Suicidal ideation / Depression - management as per psychiatry. Herion abuse/ Opiod use- pt started on suboxone. cont to monitor closely for any signs of withdrawl. d/w pt the care plan." Allergies: Coded Allergies: poison kevin extract (SWELLING, REDNESS, HIVES ALL OVER 10/17/15) poison oak extract (SWELLING, REDNESS, HIVES ALL OVER 10/17/15) poison sumac extract (SWELLING, REDNESS, HIVES ALL OVER 10/17/15) Hospital Course/TX Response: The patient was monitored on the unit for safety, opiate withdrawal and mood disorder. He participated in multi-modal treatments on the unit. Wellbutrin was restarted as XL 150 mg daily. Suboxone was used initially but then opiate detox was changed to clonidine. Wellbutrin was changed to SR 150 mg daily, in case XL was interfering with sleep. Zoloft 50 mg daily was added for depression. Mood and affect have improved somewhat. Active suicidal ideation has remitted. Pateint remains concerned about relapse. A Narcan kit was prescribed on discharge. Progress note from date of discharge, 05/02/17: Case and treatment plan discussed in team meeting. Staff reports that the patient is denying suicidal ideation. Mood seems good. He will be going home to mother. Has IOP intake at 1:15 PM. Patient seen 11:49 AM. He was in group prior to meeting with me in office. Feels okay. Denies withdrawal symptoms. Anxious about discharge, that he will relapse with heroin. He is not concerned about safety vis a vis about suicide. Affect is blunted to depressed. Rates sad mood 6/10. Rates anxiety 7/10. Denies feeling hopeless. Does feel helpless, worthless and guilty. Denies active suicidal ideation. Has some passive suicidal ideation. Denies suicide intent and denies suicide plan. Denies homicidal ideation. Denies auditory and visual hallucinations and paranoid ideation. Reports he slept okay but for commotion at the end of the hawley. Appetite is okay. Energy is a little low. Tolerating medications well, without complaint. IMPRESSION: Condition improved. Okay for discharge today to IOP intake then to home and mother. I do not believe that the patient poses imminent risk for suicide. Discharge HBIPS - Tobacco Use Treatment Offered Post DC Medications Offered: Not Applicable Post DC Tobacco Treatment Plan: Not Applicable - EtOH/Drug Use D/O Treatment Offered Post DC Medications Offered: Med Not Indicated for D/O Post DC EtOH/SubAbuse TX Plan: [facility]Dual IOP Program Appt Date: 05/02/17 Program Appt Time: 1315 Metabolic Screening - Screen if on a Neuroleptic Medication - Metabolic screening should include: - Blood Pressure, BMI, Glucose or Hgb A1c, & a - Lipid profile from within the past 365 days. Metabolic Screening ([x]) Not Applicable, patient not on a neuroleptic. OR () Patient on a neuroleptic(s) . Enter below results for Hemoglobin A1C, and lipid panel if obtained during the last 365 days. BMI: 32.600 Blood Pressure: 131/67 Laboratory Results From [facility] EHR (If applicable): Discharge Instructions General Discharge Information Multiple Neuroleptics: ([x]) Not Applicable OR Document below three failed attempts at monotherapy, or a plan to taper to monotherapy, or augmentation of Clozapine. () Discharge Diet Regular Discharge Activity Normal DC Disposition: Returning to home and mother. Referrals Ordered Referrals Provider Referral 05/02/17 For Groups: [[facility]] [address] [phone] Intake appointment: , 05/02/17, at 1:15pm Prescriptions Start taking the following new medications: Bupropion HCl (Bupropion HCl Sr) 150 MG TABLET.ER 1 Tablet ORAL DAILY @8 AM Qty = 14 No Refills Comments: Last Taken:05/02/17 Time:8am Sertraline HCl (Sertraline HCl) 50 MG TABLET 1 Tablet ORAL DAILY Qty = 14 No Refills Comments: Last Taken:05/02/17 Time:8am Trazodone HCl (Trazodone HCl) 100 MG TABLET 1 Tablet ORAL AT BEDTIME Qty = 14 No Refills Comments: Last Taken:05/01/17 Time:10pm [Narcan kit] 1 Kit In the nose SEE INSTRUCTIONS Qty = 1 No Refills Other Inst/Recommendations See PCP about EKG, labs listed above. Stay away from drugs and alcohol! Studies Pending at Discharge None. Copies To: Intensive Outpt Psychiatry
--- NOTE | 2017-05-02 18:03 | SOCIAL WORKER PROG NOTE PSYCH ---
Social Work Progress Note Progress Note This senior mortgage underwriter met with patient. He described his mood as "alright" and denied SI/ HI/AH/VH. He identified a safety plan in which he would "talk to my mom, friends or my aunt." He was also informed that he would be provided with crisis numbers/warm lines upon discharge today, which he was agreeable to utilizing. This senior mortgage underwriter and patient also discussed a plan to support his recovery. He stated that he does not currently have access to a car, cell phone or money. He will be provided with a prescription for Narcan by Dr. Atkinson. He agrees to attend one AA meeting daily and identified a 5pm meeting in [place] near [address], [facility]. Patient plans to attend the [facility] intake today at 1: 15 at [facility]. He stated that he pawned his cell phone and anticipates being able to obtain it on 05/19/17. He will ask his mother to accompany him and assist him in deleting all phone numbers and getting a new phone number. Patient stated that he plans to connect with sober supports who will support his recovery. He stated that he does not have any Heroin or other substances in the home. This senior mortgage underwriter and patient attempted to contact his mother during this meeting to discuss the safety plan, however, she was not reachable and a vm was left. Patient was informed that the plan would be shared with [facility]. This senior mortgage underwriter spoke with Sheri in [facility] who was informed of the plan. She was also informed of the patient's interest in a Suboxone provider and will make a referrel during the intake. Patient was unable to reach his mother or aunt for a ride home. Irlanda Leon scheduled a ride through [place]. Faxed Referral(s) Referred To: [facility] Transition of Care Documents sent: Health Summary, transfer summary Faxed to: [facility] Fax #: [phone] Faxed by: Ramone Nicholson LCSW Date faxed: 05/02/17 Time Faxed: [phone]
== END 2017-05-02 13:30 | DRG 754 ==
LOC: ERH 09:30 → ERHI 13:04 → CP SOUTH 13:04 → ENTRNSPT 15:53 → EDTRNSPTSTS 15:56 → CP SOUTH 16:02 → CMPTRNSPT 16:08 → CP SOUTH 04-28 09:03
PROVIDERS: Physician Assistant Medical
DX: F32.9 Major depressive disorder, single episode, unspecified (principal); F11.10 Opioid abuse, uncomplicated; F14.10 Cocaine abuse, uncomplicated
CPT/HCPCS: 80307; 93005; 93010; G0463; G0480; J3490; Q2036